=== PATIENT | male | born 1955 | race Caucasian/White ===

== ENCOUNTER → 2022-03-25 09:21 | Outpatient (CLI) | payer OTHER, SELFPAY ==
--- NOTE | ~2022-03-25 | US_ITS ---
EXAMINATION: US aorta DATE: 03/25/2022 14:15 GLASS BENDER INDICATION: Personal history of nicotine dependence TECHNIQUE: Grayscale, color Doppler, and pulsed Doppler images of the aorta and common iliac arteries were obtained. COMPARISON: None. FINDINGS: The proximal aorta measures 2.5 cm greatest axial dimension. The mid aorta measures 1.8 cm greatest s agittal dimension. The distal aorta measures 1.4 cm greatest sagittal dimension. The right common int ernal iliac artery measures 10 mm. The left common iliac artery measures 11 mm. IMPRESSION: 1. No evidence for aortic aneurysm. Reviewed, dictated and finalized at location A. S BENDER
== END ==
PROVIDERS: PCP Internal Medicine; Visit Provider Internal Medicine
DX: Z87.891 Personal history of nicotine dependence (principal)
CPT/HCPCS: 76775

== ENCOUNTER 2023-05-30 03:06 | Day surgery (SDC) | payer OTHER, SELFPAY ==
[2023-05-02 12:13] VITALS: BMI 34.4
--- NOTE | 2023-05-27 08:39 | SUR.PREOP ---
Patient called regarding upcoming procedure. Reviewed preop instructions, appointment times, and procedure prep.
--- NOTE | 2023-05-27 14:30 | PM.HPGS ---
History of Present Illness History of Present Illness Consent: Risks, benefits, and alternatives have been discussed and questions answered. Patient agrees to proceed with procedure. Chief complaint: hx colon polyps Narrative: Walt Cleveland III is a 68 year old male Referred for colon cancer screening. He has a history of having polyps. Review of Systems Review of Systems: All systems reviewed & are unremarkable except as noted in HPI and below PMFSH Social History Social History Alcohol intake: current Substance use type: does not use Living arrangements: other Additional living arrangements comments: with sp Meds Home Medications and Allergies Home Medications Medication Instructions Recorded Confirmed Type aspirin 81 mg tablet 81 mg PO DAILY 05/02/23 05/02/23 History dapagliflozin propanediol 5 mg 5 mg PO DAILY 05/02/23 05/02/23 History tablet (Farxiga) flecainide 100 mg tablet 100 mg PO BID 05/02/23 05/02/23 History fluticasone propionate 50 1 spray intranasal DAILY 05/02/23 05/02/23 History mcg/actuation nasal spray,suspension hydrochlorothiazide 12.5 mg capsule 12.5 mg PO DAILY 05/02/23 05/02/23 History icosapent ethyl 1 gram capsule 1 g PO BID 05/02/23 05/02/23 History (Vascepa) ketoconazole 2 % topical cream 1 applic topical DAILY PRN 05/02/23 05/02/23 History Athletes foot lisinopril 10 mg tablet 10 mg PO DAILY 05/02/23 05/02/23 History metformin 500 mg tablet 500 mg PO BID 05/02/23 05/02/23 History metoprolol tartrate 25 mg tablet 25 mg PO BID 05/02/23 05/02/23 History montelukast 10 mg tablet 10 mg PO DAILY 05/02/23 05/02/23 History rosuvastatin 40 mg tablet 40 mg PO DAILY 05/02/23 05/02/23 History tamsulosin 0.4 mg capsule 0.4 mg PO DAILY 05/02/23 05/02/23 History Allergies Allergy/AdvReac Type Severity Reaction Status Date / Time cephalexin Allergy Rash Verified 05/30/23 07:05 clindamycin [From Cleocin] Allergy Rash Verified 05/30/23 07:05 gatifloxacin [From Tequin] Allergy Rash Verified 05/30/23 07:05 Penicillins Allergy Rash Verified 05/30/23 07:05 ciprofloxacin AdvReac Nausea Verified 05/30/23 07:05 Exam Resp: Auscultation: clear to auscultation bilaterally Cardio: Rate: regular rate Rhythm: regular rhythm GI: GI Palp: Yes Soft to palpation and No Tenderness to palpation present (GI) Assessment and Plan Assessment and plan (1) Colon cancer screening: Code(s): Z12.11 - Encounter for screening for malignant neoplasm of colon Status: Acute Assessment and Plan: Colonoscopy with possible biopsy or polypectomy or cautery or injection of substances.
[2023-05-30 07:07] VITALS: BP 141/70; PULSE 64; RESP 18; TEMP 36.1; O2SAT 96
[2023-05-30] MEDS: LACTATED RINGERS 1,000 ML 150 ML IV CONT (07:19)
[2023-05-30 07:22] LABS: Glucose Point of Care 115 mg/dl (65-105)
--- NOTE | 2023-05-30 07:46 | WPDANESEPPF ---
Anes - Initial Pre Proc Eval Procedure: Operation Date: 05/30/23 08:30 Proposed Procedures p Colonoscopy - Mele Gonzales MD Date/Time: 05/30/23 07:46 Surgeon: Mele Gonzales MD Pre Op Diagnosis: hx colon polyps Patient Data Age: 68 Gender: M Height: 1.78 m Weight: 108.8 kg Last Vital Signs Temp 97 F L 05/30/23 07:07 Pulse 64 05/30/23 07:07 Resp 18 05/30/23 07:07 BP 141/70 H 05/30/23 07:07 Pulse Ox 96 05/30/23 07:07 O2 Del Method Room Air 05/30/23 07:07 Allergies Allergy/AdvReac Type Severity Reaction Status Date / Time cephalexin Allergy Rash Verified 05/30/23 07:05 clindamycin [From Cleocin] Allergy Rash Verified 05/30/23 07:05 gatifloxacin [From Tequin] Allergy Rash Verified 05/30/23 07:05 Penicillins Allergy Rash Verified 05/30/23 07:05 ciprofloxacin AdvReac Nausea Verified 05/30/23 07:05 Home Medications Medication Instructions Recorded Confirmed Type aspirin 81 mg tablet 81 mg PO DAILY 05/02/23 05/02/23 History dapagliflozin propanediol 5 mg 5 mg PO DAILY 05/02/23 05/02/23 History tablet (Farxiga) flecainide 100 mg tablet 100 mg PO BID 05/02/23 05/02/23 History fluticasone propionate 50 1 spray intranasal DAILY 05/02/23 05/02/23 History mcg/actuation nasal spray,suspension hydrochlorothiazide 12.5 mg capsule 12.5 mg PO DAILY 05/02/23 05/02/23 History icosapent ethyl 1 gram capsule 1 g PO BID 05/02/23 05/02/23 History (Vascepa) ketoconazole 2 % topical cream 1 applic topical DAILY PRN 05/02/23 05/02/23 History Athletes foot lisinopril 10 mg tablet 10 mg PO DAILY 05/02/23 05/02/23 History metformin 500 mg tablet 500 mg PO BID 05/02/23 05/02/23 History metoprolol tartrate 25 mg tablet 25 mg PO BID 05/02/23 05/02/23 History montelukast 10 mg tablet 10 mg PO DAILY 05/02/23 05/02/23 History rosuvastatin 40 mg tablet 40 mg PO DAILY 05/02/23 05/02/23 History tamsulosin 0.4 mg capsule 0.4 mg PO DAILY 05/02/23 05/02/23 History Laboratory Tests 05/30/23 07:18 POC Capillary Glucose 115 H mg/dl (65-105) Patient hx anesthesia problems: none Family hx anesthesia problems: none Results Review: All pre-operative results and documents have been reviewed as part of the pre-operative evaluation. [facility] Social History Social History Alcohol intake: current Substance use type: does not use Living arrangements: other Additional living arrangements comments: with krishan Alvarez Final PreProcedure Day of Procedure 05/30/23 07:46 Patient weight: obese Heart: regular rate and rhythm Lungs: clear to auscultation Airway: Mallampati scale class II Neurological: alert and oriented Last oral intake: >/= 8 hours ASA classification: III Emergent: no Anesthetic plan: proceed Anesthesia type and monitoring: general GIVS and standard monitoring Results Review: All pre-operative results and documents have been reviewed as part of the pre-operative evaluation. Informed Consent: The patient's anesthetic plan and its attendant risks and benefits were discussed with the patient/family/POA. Questions were solicited and answers provided to the satisfaction of the patient/family/POA.
[2023-05-30 08:12] VITALS: BP 93/59; PULSE 63; RESP 18; O2SAT 94
[2023-05-30 08:22] VITALS: BP 93/59; PULSE 63; RESP 22; O2SAT 94
== END 2023-05-30 08:37 | disposition home or self-care (01) ==
PROVIDERS: PCP Internal Medicine; Visit Provider Internal Medicine Gastroenterology
PROC: 0DJD8ZZ Inspection of Lower Intestinal Tract, Via Natural or Artificial Opening Endoscopic (ICD-10-PCS; CPT 45378; principal; 2023-05-30 08:30)
DX: Z12.11 Encounter for screening for malignant neoplasm of colon (principal); D12.2 Benign neoplasm of ascending colon; D12.3 Benign neoplasm of transverse colon; K57.30 Diverticulosis of large intestine without perforation or abscess without bleeding; E66.9 Obesity, unspecified; Z68.34 Body mass index [BMI] 34.0-34.9, adult; Z79.82 Long term (current) use of aspirin; Z79.84 Long term (current) use of oral hypoglycemic drugs; Z86.010 Personal history of colon polyps
CPT/HCPCS: 45385; 82948; 88305; J2704; J7120